=== PATIENT | male | born 1970 | race Caucasian/White ===

== ENCOUNTER 2021-01-20 09:41 | Inpatient (IN) | payer SELFPAY ==
[~2021-01-20] VITALS: Ht 174 cm; Wt 94.9 kg
[2021-01-20 09:56] VITALS: BP 156/89
[2021-01-20 11:14] LABS: BASO # 0.1 10*3/uL (0.0-0.1); EOS # 0.3 10*3/uL (0.0-0.4); EOS % 3.7 % (1.0-4.0); HEMATOCRIT 42.9 % (42.0-52.0); LYMPH # 1.8 10*3/uL (1.3-4.4); LYMPH % 26.5 % (27.0-41.0); MEAN CELL VOLUME 95.3 fl (80.0-94.0); MEAN CORPUSCULAR HGB 31.3 pg (27.0-31.0); MEAN CORPUSCULAR HGB CONC 32.9 g/dl (33.0-37.0); MEAN PLATELET VOLUME 11.4 fl (9.6-12.3); MONO # 0.6 10*3/uL (0.1-1.0); MONO % 8.8 % (3.0-9.0); NEUT % 59.6 % (47.0-73.0); PLATELET COUNT AUTOMATED 209 10*3/uL (130-400); RED CELL DISTRI WIDTH 12.3 % (0-14.5); WHITE BLOOD COUNT 6.7 10*3/uL (4.8-10.8)
[2021-01-20 11:25] LABS: ACT PARTIAL THROMBO TIME 25.7 SECONDS (20.0-32.1)
[2021-01-20 11:33] LABS: ALBUMIN 3.7 gm/dl (3.1-4.5); ALKALINE PHOSPHATASE 109 U/L (45-117); BUN 13 mg/dl (7-24); CHLORIDE 106 mmol/L (98-107); LIPASE 72 U/L (73-393); SGOT/AST 20 IU/L (3-35); SGPT/ALT 43 U/L (12-78); SODIUM 138 mmol/L (136-145); TOTAL PROTEIN 7.7 gm/dL (6.4-8.2)
[2021-01-20 11:41] LABS: TROPONIN I < 0.015 ng/ml (<0.045)
[2021-01-20 12:42] LABS: BILIRUBIN Negative (Negative); BLOOD Negative (Negative); CLARITY Clear (Clear); COLOR Yellow (Yellow); GLUCOSE 3+ (Negative); KETONE Negative (Negative); LEUKO ESTERASE Negative (Negative); NITRITE Negative (Negative); SPECIFIC GRAVITY 1.025 (1.001-1.030); UROBILINOGEN 0.2 E.U./dl (0.0-1.0)
[2021-01-20 13:02] VITALS: BP 158/84
[2021-01-20 15:07] VITALS: BP 149/89
[2021-01-20 15:20] VITALS: BP 150/98
[2021-01-20 16:00] VITALS: BP 150/98
[2021-01-20 20:00] VITALS: BP 149/75
[2021-01-21] VITALS: BP 131/70
[2021-01-21 05:57] LABS: ALBUMIN 3.5 gm/dl (3.1-4.5); ALKALINE PHOSPHATASE 80 U/L (45-117); BUN 14 mg/dl (7-24); CHLORIDE 107 mmol/L (98-107); CHOLESTEROL 202 mg/dL (<200); CREATININE 0.89 mg/dL (0.70-1.30); FREE T4 0.84 ng/dl (0.76-1.46); HDL CHOLESTEROL 36 mg/dl (40-60); LDL CHOLESTEROL 115 mg/dL (9-159); POTASSIUM 4.4 mmol/L (3.5-5.1); SGOT/AST 22 IU/L (3-35); SGPT/ALT 43 U/L (12-78); SODIUM 139 mmol/L (136-145); TOTAL PROTEIN 7.2 gm/dL (6.4-8.2); TRIGLYCERIDES 254 mg/dl (<150); VLDL CHOLESTEROL 51 mg/dL (6-40)
[2021-01-21 06:08] LABS: BASO # 0.1 10*3/uL (0.0-0.1); BASO % 0.7 % (0.0-1.0); EOS # 0.2 10*3/uL (0.0-0.4); EOS % 3.3 % (1.0-4.0); HEMATOCRIT 43.5 % (42.0-52.0); MEAN CELL VOLUME 97.3 fl (80.0-94.0); MEAN CORPUSCULAR HGB 31.1 pg (27.0-31.0); MEAN PLATELET VOLUME 12.1 fl (9.6-12.3); MONO # 0.6 10*3/uL (0.1-1.0); MONO % 8.7 % (3.0-9.0); NEUT % 57.9 % (47.0-73.0); PLATELET COUNT AUTOMATED 198 10*3/uL (130-400); RED BLOOD COUNT 4.47 10*6/uL (4.50-5.90); RED CELL DISTRI WIDTH 12.6 % (0-14.5); WHITE BLOOD COUNT 6.9 10*3/uL (4.8-10.8)
[2021-01-21 08:00] VITALS: BP 158/83
[2021-01-21] MEDS ORDERED: CLOPIDOGREL75 MG PO (11:33)
[2021-01-21] MEDS ORDERED: ATORVASTATIN CA20 M1 PO (11:33)
[2021-01-21] MEDS ORDERED: LISINOPRIL10 M1 PO (11:33)
[2021-01-21] MEDS ORDERED: ASPIRIN ADULT L81 M1 PO (11:33)
[2021-01-21] MEDS ORDERED: VITAMIN D3125 MCG PO (11:53)
== END 2021-01-21 13:28 | disposition home or self-care (01) | DRG 69 ==
LOC: ED 09:41 → 4E 13:51 → EDHOLD 13:51 → 4E 14:17
PROVIDERS: Physician Assistant; Social Worker Clinical; ADMIT Internal Medicine; ATTEND Internal Medicine
DX: G45.9 Transient cerebral ischemic attack, unspecified (principal); R31.29 Other microscopic hematuria; I10 Essential (primary) hypertension; Z83.3 Family history of diabetes mellitus; R73.9 Hyperglycemia, unspecified; Z78.9 Other specified health status; D75.89 Other specified diseases of blood and blood-forming organs; R81 Glycosuria

== ENCOUNTER → 2023-05-18 | Outpatient (CLI) | payer SELFPAY ==
[~2023-05-18] MED LIST: ASPIRIN ADULT L81 M1 PO; ATORVASTATIN CA20 M1 PO; CLOPIDOGREL75 MG PO; LISINOPRIL10 M1 PO; VITAMIN D3125 MCG PO
== END | disposition home or self-care (01) ==
LOC: LAB 12:04
PROVIDERS: ATTEND Nurse Practitioner
DX: E87.5 Hyperkalemia (principal)

== ENCOUNTER → 2023-09-14 | Outpatient (CLI) | payer SELFPAY | END | disposition home or self-care (01) | LOC: RAD 09:28 | PROVIDERS: ATTEND Nurse Practitioner | DX: M19.032 Primary osteoarthritis, left wrist (principal) ==